=== PATIENT | male | born 1935 | race Caucasian/White ===

== ENCOUNTER 2018-12-30 12:47 | Emergency (ER) | payer OTHER, MEDICARE ==
--- NOTE | 2018-12-30 13:02 | PDOC ---
History of Present Illness - General Chief Complaint: Injury Stated Complaint: FELL DOWN 4 STEPS LANDED ON LEFT HIP Time Seen by Provider: 12/30/18 12:58 History Source: Patient Exam Limitations: No Limitations - History of Present Illness Initial Comments: 12/30/18 12:58 83 yo M here s/p trip an fall. pt states he was walking up the stairs with laundry, suddenly lost his balance and fell backward down few stairs. landed on his left side. abrasion to his left elbow. denies loc. states he was ambulatory after fall. was able to walk to stretcher when ambulance arriveed. does take baby aspirin daily. feels lightheaded since fall, but denies chest pain, palpitations or feeling lightheaded prior to the incident. no hip or chest pain currently. Past History - Past Medical History Allergies/Adverse Reactions: Allergies Allergy/AdvReac Type Severity Reaction Status Date / Time No Known Allergies Allergy Verified 12/30/18 12:50 Home Medications: Ambulatory Orders Amlodipine Besylate [Norvasc -] 10 mg PO DAILY 04/27/12 Omeprazole [Prilosec (RX)] 20 mg PO BID 04/27/12 Atorvastatin Ca [Lipitor] 80 mg PO HS 09/20/14 Cholecalciferol (Vitamin D3) [Vitamin D3] 1,000 unit PO DAILY 09/20/14 Metoprolol Tartrate [Lopressor -] 25 mg PO BID 09/20/14 Lutein 20 mg PO DAILY 12/30/18 GI Disorders: Yes (ACID REFLUX) HTN: Yes Hypercholesterolemia: Yes - Surgical History Cardiac Surgery: No Lung Surgery: No - Immunization History Immunization Up to Date: No - Suicide/Smoking/Psychosocial Hx Smoking History: Former smoker Have you smoked in the past 12 months: No Number of Cigarettes Smoked Daily: 0 If you are a former smoker, when did you quit?: 50+YRS Hx Alcohol Use: Yes (WINE) Drug/Substance Use Hx: No Substance Use Type: None Review of Systems - Review of Systems Constitutional: No: Chills, Diaphoresis HEENTM: No: Eye Pain Respiratory: No: Cough, Orthopnea, Shortness of Breath Cardiac (ROS): No: Chest Pain, Edema Musculoskeletal: Yes: Back Pain (chronic ). No: Other Neurological: No: Headache Psychiatric: No: Anxiety, Depression All Other Systems: Reviewed and Negative *Physical Exam - Physical Exam Comments: 12/30/18 13:00 awake alert lungs clear bilaterally heart rrr no mrg abd soft nt nd. ext wwp atraumatic. FROM at hips knees ankles and bilat upper ext. NIH stroke scale zero , finger to nose normal heel to camp normal. sensation intact. speech clear. 5/ 5 symmetric strength. no midline cervical thoracic or lumbar spinal tenderness. Heart Score/ECG Review #1 General ECG Interpretation: Sinus Rhythm, Normal Rate (62), Normal Intervals, No acute ischemic changes ED Treatment Course - LABORATORY CBC & Chemistry Diagram: 12/30/18 13:15 12/30/18 13:15 - RADIOLOGY Radiology Studies Ordered: Category Date Time Status HEAD CT WITHOUT CONTRAST [CT] Stat CT Scan 12/30/18 12:57 Ordered Medical Decision Making - Medical Decision Making 12/30/18 13:01 83 yo male h/o spinal stenosis on baby asa her s/p trip and fall. plan labs ( pt feeling lightheaded ) r/o electrolyte disturbance or anemia, ua r/o associated uti, ct head r/o traumatic injury/ normal nuerological exam. should all be unremarkable. margaret dc home with fu pcp. 12/30/18 14:46 ct head normal. labs unremarkable. including ekg and normal ua. pt ambulting without difficulty. dc home. tetanus up to date last given by pcp one yr ago. *DC/Admit/Observation/Transfer Diagnosis at time of Disposition: Contusion - Discharge Dispostion Disposition: HOME Condition at time of disposition: Improved Decision to Admit order: No - Referrals - Patient Instructions Additional Instructions: you can take tylenol 500 mg eveery 6 hrs as needed for pain. for your abrasion on your elbow, apply bacitracin ointment twice daily and wash with mild soap and water. return for redness, swelling or any signs of infection. your ct of your head is normal. if you develop weakness ,changes to speech, confusion or any concerns return to ed immediately. follow up with your regular doctor call to schedule. - Post Discharge Activity
[2018-12-30 13:18] VITALS: BP 143/73; PULSE 66; TEMP 98.3; BMI 22.6
[2018-12-30 13:31] LABS: BASO % 1.3 % (0-2.0); EOS % 1.7 % (0-4.5); HEMATOCRIT 44.7 % (35.4-49); HEMOGLOBIN 14.6 GM/dl (11.7-16.9); LYMPH % 15.7 % (8-40); MCH 31.5 pg (25.7-33.7); MCHC 32.7 g/dl (32.0-35.9); MEAN CELL VOLUME 96.5 fl (80-96); MONO % 8.4 % (3.8-10.2); NEUT % 72.9 % (42.8-82.8); PLATELET COUNT 172 K/MM3 (134-434); RBC 4.63 M/mm3 (4.00-5.60); RDW 13.1 % (11.9-15.9); WHITE BLOOD COUNT 6.7 K/mm3 (4.0-10.8)
[2018-12-30 13:42] LABS: ALBUMIN 3.3 g/dl (3.4-5.0); ALK PHOS 84 U/L (45-117); ANION GAP 7 MMOL/L (8-16); BILIRUBIN,TOTAL 0.6 mg/dl (0.2-1); BLOOD UREA NITROGEN 19 mg/dl (7-18); CALCIUM 8.3 mg/dl (8.5-10); CHLORIDE 103 mmol/L (98-107); CO2 23 mmol/L (21-32); CREATININE 0.8 mg/dl (0.55-1.3); GLUCOSE,RANDOM 96 mg/dl (74-106); SGOT/AST 20 U/L (15-37); SGPT/ALT 18 U/L (13-61); SODIUM 133 mmol/L (136-145); TOT PROT 5.5 g/dl (6.4-8.2)
[2018-12-30 14:33] LABS: URINE APPEARANCE Clear; URINE BILIRUBIN Negative (NEGATIVE); URINE COLOR Yellow; URINE GLUCOSE (UA) Negative (NEGATIVE); URINE KETONE Negative (NEGATIVE); URINE LEUK ESTERASE Negative (NEGATIVE); URINE NITRITE Negative (NEGATIVE); URINE PROTEIN Negative (NEGATIVE); URINE UROBILINOGEN 0.2 (0.2-1.0)
--- NOTE | 2018-12-31 11:22 | EKG ---
Test Reason : Blood Pressure : / mmHG Vent. Rate : 062 BPM Atrial Rate : 062 BPM P-R Int : 196 ms QRS Dur : 084 ms QT Int : 400 ms P-R-T Axes : -18 -31 064 degrees QTc Int : 406 ms NORMAL SINUS RHYTHM LEFT AXIS DEVIATION ABNORMAL ECG NO PREVIOUS ECGS AVAILABLE Confirmed by ABBE JOHNSON, BECKY ([id number]) on 12/31/2018 11:22:16 AM Referred By: STEWART FAGAN Confirmed By:BECKY MCADAMS MD
== END 2018-12-30 15:04 | disposition home or self-care (01) ==
LOC: FER 12:47
DX: S50.02XA Contusion of left elbow, initial encounter (principal); W10.9XXA Fall (on) (from) unspecified stairs and steps, initial encounter; Y93.89 Activity, other specified; Y92.89 Other specified places as the place of occurrence of the external cause; Z87.891 Personal history of nicotine dependence; I10 Essential (primary) hypertension; E78.00 Pure hypercholesterolemia, unspecified; K21.9 Gastro-esophageal reflux disease without esophagitis
CPT/HCPCS: 36415; 70450-TC; 80053; 81003; 85025; 93005; 99282-25